=== PATIENT | male | born 1985 | race Caucasian/White ===

== ENCOUNTER 2018-09-06 19:32 | Emergency (ER) | payer OTHER ==
[~2018-09-06] VITALS: Ht 167.6 cm; Wt 59.9 kg
[2018-09-06] MEDS ORDERED: NORCO 5-325 TA1 EAC1 PO (21:08)
[2018-09-06 21:19] VITALS: BP 136/63
== END 2018-09-06 21:30 | disposition home or self-care (01) ==
LOC: ER 19:32
DX: S43.004A Unspecified dislocation of right shoulder joint, initial encounter (principal); W18.30XA Fall on same level, unspecified, initial encounter; Y93.I9 Activity, other involving external motion; Y92.830 Public park as the place of occurrence of the external cause; Y99.8 Other external cause status